=== PATIENT | male | born 1980 | race Caucasian/White ===

== ENCOUNTER 2016-10-13 00:36 | Emergency (ER) | payer SELFPAY ==
[2016-10-13 02:54] LABS: CALCIUM 8.4 mg/dL (8.5-10.1); CARBON DIOXIDE 27.3 mmol/L (21-32); CHLORIDE SERUM 107 mmol/L (98-107); CREATININE SERUM 0.9 mg/dL (0.7-1.3); GFR1 > 60 mL/min; GLUCOSE SERUM 83 mg/dL (74-106); POTASSIUM SERUM 3.8 mmol/L (3.5-5.1); SODIUM SERUM 139 mmol/L (136-145)
[2016-10-13 02:56] LABS: AMPHETAMINE QUAL UR NONE DETECTED (NEG <=1000)
[2016-10-13 04:20] VITALS: BP 117/72
== END 2016-10-13 04:20 | disposition home or self-care (01) ==
LOC: ED 00:36
PROVIDERS: Emergency Medicine
DX: F10.129 Alcohol abuse with intoxication, unspecified (principal); J01.90 Acute sinusitis, unspecified
CPT/HCPCS: 36415; G0480